=== PATIENT | female | born 1955 | race African-American/Black ===

== ENCOUNTER 2025-02-25 16:41 | Inpatient (IN) | payer MEDICARE, OTHER ==
[~2025-02-25] VITALS: Ht 154.9 cm; Wt 155.7 kg
[~2025-02-25 16:41] MED LIST: ASPI-1444 PO; METF-1211 PO; OXYC1TAB10 PO
[2025-02-25] MEDS ORDERED: GLIP-383 PO (17:03)
[2025-02-25] MEDS ORDERED: CINA30TA5 PO (17:03)
[2025-02-25] MEDS ORDERED: ATOR20TA65 PO (17:03)
[2025-02-25] MEDS ORDERED: ALBU18HF12 IH (17:03)
[2025-02-25] MEDS ORDERED: SODI5POW3 PO (17:03)
[2025-02-25] MEDS ORDERED: FLUT1BLS3 PO (17:03)
[2025-02-25] MEDS ORDERED: METO100T14 PO (17:03)
[2025-02-25] MEDS ORDERED: SEMA0.258 SQ (17:03)
[2025-02-25] MEDS ORDERED: DAPA5TAB PO (17:03)
[2025-02-25] MEDS ORDERED: FERR-89 PO (17:03)
[2025-02-25] MEDS ORDERED: SOLI5TAB6 PO (17:03)
[2025-02-25 17:46] LABS: EOSINOPHILS % (AUTO) 1.2 % (1.0-6.0); HEMATOCRIT 38.7 % (36-46); HEMOGLOBIN 12.3 g/dL (12.0-16.0); LYMPHOCYTES # (AUTO) 1.5 K/uL (1.0-4.8); LYMPHOCYTES % (AUTO) 15.1 % (22.0-44.0); MEAN CORPUSCULAR HEMOGLOBIN 27.6 pg (26.0-34.0); MEAN CORPUSCULAR HGB CONC 31.9 G/dL (31.0-37.0); MEAN CORPUSCULAR VOLUME 87 fL (80-100); MONOCYTES # (AUTO) 0.7 K/uL (0.1-1.0); MONOCYTES % (AUTO) 6.9 % (2.0-9.0); NEUTROPHILS # (AUTO) 7.4 K/uL (1.8-7.7); NEUTROPHILS % (AUTO) 75.8 % (40.0-70.0); PLATELET COUNT (AUTO) 224 K/uL (150-450); RED BLOOD CELL COUNT(AUTO) 4.47 MIL/uL (4.00-5.20); RED CELL DISTRIBUTION WIDTH 15.9 % (11.5-14.5); WHITE BLOOD COUNT (AUTO) 9.7 K/uL (4.5-11.0)
[2025-02-25 17:59] LABS: ANION GAP 11 mmol/L (8-16); CALCIUM, TOTAL 8.8 mg/dL (8.8-10.5); CARBON DIOXIDE 22 mmol/L (22-29); CHLORIDE 109 mmol/L (98-107); CREATININE 2.92 mg/dL (0.60-1.30); GLOMERULAR FILTR. RATE CALC 19 mL/min (>60); GLUCOSE,RANDOM 102 mg/dL (70-110); POTASSIUM 5.3 mmol/L (3.5-5.1); SODIUM SERUM 142 mmol/L (136-145); UREA NITROGEN, BLOOD 53 mg/dL (7-18)
[2025-02-25 18:01] LABS: CREATINE KINASE, TOTAL ONLY 126 U/L (26-192)
[2025-02-25 18:04] LABS: TROPONIN I-HIGH SENSITIVITY 45 ng/L (<51)
[2025-02-25 18:06] LABS: B-TYPE NATRIURETIC PEPTIDE 559 pg/mL (0-100)
[2025-02-25] MEDS: FUROSEMIDE 40 MG/4 ML VIAL IVP ONE (20:02)
[2025-02-25] MEDS: NITROGLYCERIN 2% (1 GM=INCH) OINTMENT PACKET TP ONE (20:02)
[2025-02-25] MEDS ORDERED: FERR325T27 PO (21:43)
[2025-02-25] MEDS ORDERED: GLIP-300 PO (21:43)
[2025-02-25] MEDS ORDERED: AMLO-257 PO (21:43)
[2025-02-25] MEDS ORDERED: CINA30TA32 PO (21:43)
[2025-02-25 22:01] LABS: APPEARANCE,URINE CLEAR (CLEAR); BILIRUBIN,URINE NEGATIVE (NEGATIVE); COLOR,URINE COLORLESS (YELLOW); GLUCOSE, URINE (UA) TRACE mg/dL (NEGATIVE); KETONES,URINE NEGATIVE (NEGATIVE); LEUKOCYTE ESTERASE ,URINE TRACE (NEGATIVE); NITRATE,URINE NEGATIVE (NEGATIVE); OCCULT BLOOD,URINE NEGATIVE (NEGATIVE); PROTEIN,URINE 100-200,SEE CONFIRM mg/dL (NEGATIVE); SPECIFIC GRAVITIY, URINE 1.009 (1.003-1.030); UROBILINOGEN,URINE <=1.0 mg/dL (<=1.0)
[2025-02-25 22:02] LABS: BACTERIA,URINE None Seen /HPF (None Seen); RBC,URINE None Seen /HPF (0-2); SQUAMOUS EPITHELIAL CELL,UR Few /LPF (None Seen); SULFOSALICYLIC ACID,URINE 2+ (Negative); WBC,URINE 0-2 /HPF (0-5)
[2025-02-25] MEDS ORDERED: ALBUTEROL SULFATE 2.5 MG/0.5 ML NEB SOLUTION NEB PRN (22:45)
[2025-02-25] MEDS ORDERED: MAGNESIUM HYDROXIDE SUSPENSION 30 ML UDCUP PO PRN (22:45)
[2025-02-25] MEDS ORDERED: ONDANSETRON HCL 4 MG/2 ML VIAL IVP PRN (22:45)
[2025-02-25] MEDS ORDERED: IPRATROPIUM BROMIDE 0.5 MG/2.5 ML NEB SOLUTION NEB PRN (22:45)
[2025-02-25] MEDS ORDERED: ZOLPIDEM TARTRATE 5 MG TABLET PO PRN (22:45)
[2025-02-25] MEDS ORDERED: MORPHINE SULFATE 2 MG/ML SYRINGE IVP PRN (22:45)
[2025-02-25] MEDS ORDERED: HYDROCODONE/ACETAMINOPHEN 5-325 MG TABLET PO PRN (22:45)
[2025-02-25] MEDS ORDERED: BISACODYL 10 MG RECTAL RECTAL SUPPOSITORY PR PRN (22:45)
[2025-02-25] MEDS ORDERED: ACETAMINOPHEN 325 MG TABLET PO PRN (22:45)
[2025-02-26] VITALS (13 sets, daily range): BP systolic 90–116; BP diastolic 51–88; PULSE 82–113; RESP 18–22; TEMP 97.2–98.4; O2SAT 91–100
[2025-02-26] MEDS: HEPARIN SODIUM,PORCINE 5,000 UNITS/ML VIAL SQ SCH (01:58)
[2025-02-26 06:50] LABS: GLUCOMETER DEV NAME(LOC) 5N.1D; GLUCOSE,POINT OF CARE 104 MG/DL (70-110)
[2025-02-26] MEDS: GlipiZIDE ER 2.5 MG ER TABLET PO SCH (06:58)
[2025-02-26] MEDS ORDERED: [UNRECOGNIZED DRUG - OTHER] PO SCH (08:00)
[2025-02-26] MEDS: ATORVASTATIN CALCIUM 20 MG TABLET PO SCH (08:21)
[2025-02-26] MEDS: AmLODIPine BESYLATE 5 MG TABLET PO SCH (08:22)
[2025-02-26] MEDS: FERROUS SULFATE 325 MG EC TABLET PO SCH (08:22)
[2025-02-26] MEDS: SOLIFENACIN SUCCINATE 5 MG TABLET PO SCH (08:22)
[2025-02-26] MEDS: METOPROLOL TARTRATE 50 MG TABLET PO SCH (08:22)
[2025-02-26] MEDS: PANTOPRAZOLE SODIUM 40 MG DR TABLET PO SCH (08:22)
[2025-02-26] MEDS: DAPAGLIFLOZIN PROPANEDIOL 5 MG TABLET PO SCH (08:22)
[2025-02-26 14:07] LABS: EOSINOPHILS % (AUTO) 0.8 % (1.0-6.0); HEMATOCRIT 38.3 % (36-46); HEMOGLOBIN 12.3 g/dL (12.0-16.0); LYMPHOCYTES # (AUTO) 1.3 K/uL (1.0-4.8); LYMPHOCYTES % (AUTO) 13.2 % (22.0-44.0); MEAN CORPUSCULAR HEMOGLOBIN 28.1 pg (26.0-34.0); MEAN CORPUSCULAR HGB CONC 32.2 G/dL (31.0-37.0); MEAN CORPUSCULAR VOLUME 87 fL (80-100); MONOCYTES # (AUTO) 0.7 K/uL (0.1-1.0); MONOCYTES % (AUTO) 7.5 % (2.0-9.0); NEUTROPHILS # (AUTO) 7.7 K/uL (1.8-7.7); NEUTROPHILS % (AUTO) 77.5 % (40.0-70.0); PLATELET COUNT (AUTO) 238 K/uL (150-450); RED BLOOD CELL COUNT(AUTO) 4.38 MIL/uL (4.00-5.20); RED CELL DISTRIBUTION WIDTH 16.2 % (11.5-14.5)
[2025-02-26 14:28] LABS: ALBUMIN 3.1 g/dL (3.4-5.0); BILIRUBIN,TOTAL 0.4 mg/dL (0.1-1.0); CALCIUM, TOTAL 9.2 mg/dL (8.8-10.5); CREATININE 3.25 mg/dL (0.60-1.30); POTASSIUM 5.6 mmol/L (3.5-5.1); TOTAL PROTEIN, SERUM 7.7 g/dL (6.4-8.2)
[2025-02-26] MEDS: ALBUTEROL SULFATE 2.5 MG/0.5 ML NEB SOLUTION NEB SCH (15:02)
[2025-02-26] MEDS: IPRATROPIUM BROMIDE 0.5 MG/2.5 ML NEB SOLUTION NEB SCH (15:03)
[2025-02-26] MEDS: CINACALCET HCL 30 MG TABLET PO SCH (18:17)
[2025-02-26 19:06] LABS: TROPONIN I-HIGH SENSITIVITY 50 ng/L (<51)
[2025-02-26] MEDS: METOPROLOL SUCCINATE 50 MG ER TABLET PO SCH (20:53)
[2025-02-26] MEDS: FUROSEMIDE 40 MG/4 ML VIAL IVP SCH (20:53)
[2025-02-26 21:20] LABS: GLUCOMETER DEV NAME(LOC) 5N.1D; GLUCOSE,POINT OF CARE 191 MG/DL (70-110)
[2025-02-26 22:31] LABS: GLUCOMETER DEV NAME(LOC) 5S.2D; GLUCOSE,POINT OF CARE 86 MG/DL (70-110)
[2025-02-27] VITALS (13 sets, daily range): BP systolic 107–129; BP diastolic 83–91; PULSE 68–110; RESP 18–24; TEMP 97.5–98.6; O2SAT 91–100
[2025-02-27 05:26] LABS: GLUCOMETER DEV NAME(LOC) 5N.1D; GLUCOSE,POINT OF CARE 83 MG/DL (70-110)
[2025-02-27 07:14] LABS: BASOPHILS % (AUTO) 0.3 % (0.0-2.0); EOSINOPHILS % (AUTO) 0.9 % (1.0-6.0); HEMOGLOBIN 12.4 g/dL (12.0-16.0); LYMPHOCYTES # (AUTO) 1.4 K/uL (1.0-4.8); MEAN CORPUSCULAR HEMOGLOBIN 27.9 pg (26.0-34.0); MEAN CORPUSCULAR HGB CONC 31.8 G/dL (31.0-37.0); MEAN CORPUSCULAR VOLUME 88 fL (80-100); MONOCYTES # (AUTO) 0.7 K/uL (0.1-1.0); MONOCYTES % (AUTO) 7.5 % (2.0-9.0); NEUTROPHILS # (AUTO) 6.9 K/uL (1.8-7.7); NEUTROPHILS % (AUTO) 76.3 % (40.0-70.0); PLATELET COUNT (AUTO) 214 K/uL (150-450); RED BLOOD CELL COUNT(AUTO) 4.45 MIL/uL (4.00-5.20); RED CELL DISTRIBUTION WIDTH 15.9 % (11.5-14.5)
[2025-02-27 07:41] LABS: CREATININE 3.4 mg/dL (0.60-1.30)
[2025-02-27 10:28] LABS: INFLUENZA A-RTPCR,COMBO NEGATIVE (NEGATIVE); INFLUENZA B-RTPCR,COMBO NEGATIVE (NEGATIVE); RESPIRATORY SYNCYTIAL VRS-PCR NEGATIVE (NEGATIVE); SARS COVID19 RTPCR, COMBO NEGATIVE (NEGATIVE)
[2025-02-27 12:06] LABS: GLUCOMETER DEV NAME(LOC) 5N.2C; GLUCOSE,POINT OF CARE 79 MG/DL (70-110)
[2025-02-27 12:30] LABS: TROPONIN I-HIGH SENSITIVITY 60 ng/L (<51)
[2025-02-27 20:25] LABS: GLUCOMETER DEV NAME(LOC) 5S.2D; GLUCOSE,POINT OF CARE 219 MG/DL (70-110)
[2025-02-28] VITALS (9 sets, daily range): BP systolic 93–147; BP diastolic 70–84; PULSE 72–106; RESP 18–20; TEMP 97.3–98.1; O2SAT 91–100
[2025-02-28 00:06] LABS: GLUCOMETER DEV NAME(LOC) 5N.2C; GLUCOSE,POINT OF CARE 200 MG/DL (70-110)
[2025-02-28 07:04] LABS: CALCIUM, TOTAL 9.2 mg/dL (8.8-10.5); CREATININE 3.64 mg/dL (0.60-1.30); POTASSIUM 4.9 mmol/L (3.5-5.1)
[2025-02-28] MEDS: METOPROLOL SUCCINATE 50 MG ER TABLET PO SCH (08:34)
[2025-02-28 10:46] LABS: GLUCOMETER DEV NAME(LOC) 5N.2C; GLUCOSE,POINT OF CARE 105 MG/DL (70-110)
[2025-02-28 10:46] LABS: GLUCOMETER DEV NAME(LOC) 5N.2C; GLUCOSE,POINT OF CARE 87 MG/DL (70-110)
[2025-02-28 10:46] LABS: GLUCOMETER DEV NAME(LOC) 5N.2C; GLUCOSE,POINT OF CARE 71 MG/DL (70-110)
[2025-02-28 15:23] LABS: APPEARANCE,URINE CLEAR (CLEAR); BILIRUBIN,URINE NEGATIVE (NEGATIVE); COLOR,URINE LIGHT YELLOW (YELLOW); GLUCOSE, URINE (UA) 300-500 mg/dL (NEGATIVE); KETONES,URINE NEGATIVE (NEGATIVE); LEUKOCYTE ESTERASE ,URINE TRACE (NEGATIVE); NITRATE,URINE NEGATIVE (NEGATIVE); OCCULT BLOOD,URINE NEGATIVE (NEGATIVE); PROTEIN,URINE 100-200,SEE CONFIRM mg/dL (NEGATIVE); SPECIFIC GRAVITIY, URINE 1.013 (1.003-1.030); UROBILINOGEN,URINE <=1.0 mg/dL (<=1.0)
[2025-02-28 15:27] LABS: PROTEIN,URINE RANDOM 178 mg/dL (0-11.9); SODIUM,URINE RANDOM 55 mmol/l (20-110); UREA NITROGEN,URINE RANDOM 583 mg/dL (350-1000)
[2025-02-28 15:51] LABS: BACTERIA,URINE None Seen /HPF (None Seen); CALCIUM PHOSPHATE CRYSTALS,UR None Seen /LPF (None Seen); RBC,URINE None Seen /HPF (0-2); RENAL EPITHELIAL CELLS,URINE None Seen /LPF (None Seen); SQUAMOUS EPITHELIAL CELL,UR Rare /LPF (None Seen); TRANSITIONAL EPI CELLS,URINE None Seen /LPF (None Seen); WBC,URINE 0-2 /HPF (0-5); YEAST,URINE None Seen /HPF (None Seen)
[2025-02-28 15:52] LABS: CALCIUM OXALATE CRYSTALS,UR None Seen /LPF (None Seen); SULFOSALICYLIC ACID,URINE 2+ (Negative); TRIPLE PHOSPHATE CRYSTAL,UR None Seen /LPF (None Seen)
[2025-02-28 18:40] LABS: GLUCOMETER DEV NAME(LOC) 5S.2D; GLUCOSE,POINT OF CARE 55 MG/DL (70-110)
[2025-02-28 18:40] LABS: GLUCOMETER DEV NAME(LOC) 5S.2D; GLUCOSE,POINT OF CARE 80 MG/DL (70-110)
[2025-02-28 18:40] LABS: GLUCOMETER DEV NAME(LOC) 5S.2D; GLUCOSE,POINT OF CARE 122 MG/DL (70-110)
== END 2025-02-28 18:30 | disposition short-term general hospital (02) | DRG 291 ==
LOC: EMS 16:43 → EDH 22:31 → 5S 02-26 02:14
PROVIDERS: ADMIT Hospitalist; ATTEND Hospitalist
DX: I13.0 Hypertensive heart and chronic kidney disease with heart failure and stage 1 through stage 4 chronic kidney disease, or unspecified chronic kidney disease (principal); I50.23 Acute on chronic systolic (congestive) heart failure; J96.01 Acute respiratory failure with hypoxia; N18.4 Chronic kidney disease, stage 4 (severe); N25.81 Secondary hyperparathyroidism of renal origin; N17.9 Acute kidney failure, unspecified; J98.11 Atelectasis; Z68.44 Body mass index [BMI] 60.0-69.9, adult; Z20.822 Contact with and (suspected) exposure to COVID-19; E66.813 Obesity, class 3; E11.22 Type 2 diabetes mellitus with diabetic chronic kidney disease; J44.89 Other specified chronic obstructive pulmonary disease; E87.5 Hyperkalemia; E78.5 Hyperlipidemia, unspecified; F17.200 Nicotine dependence, unspecified, uncomplicated; E88.810 Metabolic syndrome; I71.21 Aneurysm of the ascending aorta, without rupture; Z79.899 Other long term (current) drug therapy; Z91.81 History of falling; Z91.199 Patient's noncompliance with other medical treatment and regimen due to unspecified reason; Z79.85 Long-term (current) use of injectable non-insulin antidiabetic drugs
CPT/HCPCS: 0241U; 71045; 71250; 76770; 80048; 80053; 81001; 81002; 82550; 82570; 82962; 83036; 83880; 84156; 84300; 84484; 84540; 85025; 93005; 93306; 94640; 96374; 97163; 97167; 97530; 97535; 99291; G0378; J1644; J1940; 36415-L1; 36415-TC; J7613

== ENCOUNTER 2025-09-17 05:44 | Inpatient (IN) | payer MEDICARE, OTHER ==
[~2025-09-17] VITALS: Ht 154.9 cm; Wt 152.0 kg
[~2025-09-17 05:44] MED LIST changes: +ALBU18HF12 IH; +AMLO-257 PO; -ASPI-1444 PO; +ATOR20TA65 PO; +CINA30TA32 PO; +CINA30TA5 PO; +DAPA5TAB PO; +FERR-89 PO; +FERR325T27 PO; +FLUT1BLS3 PO; +GLIP-300 PO; +GLIP-383 PO; -METF-1211 PO; +METO100T14 PO; -OXYC1TAB10 PO; +SOLI5TAB6 PO
[2025-09-17 05:50] VITALS: PULSE 84; RESP 19; O2SAT 90
[2025-09-17] MEDS: NITROGLYCERIN 2% (1 GM=INCH) OINTMENT PACKET TP ONE (06:23)
[2025-09-17] MEDS: FUROSEMIDE 40 MG/4 ML VIAL IVP ONE (06:23)
[2025-09-17 06:24] LABS: PLATELET COUNT (AUTO) 195 K/uL (150-450); RED BLOOD CELL COUNT(AUTO) 4.15 MIL/uL (4.00-5.20); RED CELL DISTRIBUTION WIDTH 16.2 % (11.5-14.5); WHITE BLOOD COUNT (AUTO) 8.8 K/uL (4.5-11.0)
[2025-09-17 06:34] LABS: CALCIUM, TOTAL 9.2 mg/dL (8.8-10.5); CREATININE 3.18 mg/dL (0.60-1.30); GLOMERULAR FILTR. RATE CALC 17 mL/min (>60); GLUCOSE,RANDOM 82 mg/dL (70-110); SODIUM SERUM 143 mmol/L (136-145); UREA NITROGEN, BLOOD 48 mg/dL (7-18)
[2025-09-17 06:45] VITALS: PULSE 107; RESP 24; O2SAT 95
[2025-09-17 06:48] LABS: TROPONIN I-HIGH SENSITIVITY 59 ng/L (<51)
[2025-09-17] MEDS: SODIUM ZIRCONIUM CYCLOSILICATE 10 GM POWDER PACKET PO ONE (07:12)
[2025-09-17] MEDS ORDERED: DEXTROSE 50%-WATER 25 GM/50 ML SYRINGE IVP PRN (08:30)
[2025-09-17] MEDS ORDERED: ONDANSETRON HCL 4 MG/2 ML VIAL IVP PRN (08:30)
[2025-09-17] MEDS ORDERED: ACETAMINOPHEN 325 MG TABLET PO PRN (08:30)
[2025-09-17 08:40] LABS: APPEARANCE,URINE CLEAR (CLEAR); GLUCOSE, URINE (UA) NEGATIVE (NEGATIVE); LEUKOCYTE ESTERASE ,URINE NEGATIVE (NEGATIVE); NITRATE,URINE NEGATIVE (NEGATIVE); OCCULT BLOOD,URINE NEGATIVE (NEGATIVE); SPECIFIC GRAVITIY, URINE 1.010 (1.003-1.030)
[2025-09-17 08:56] LABS: SULFOSALICYLIC ACID,URINE 1+ (Negative)
[2025-09-17 08:57] LABS: SQUAMOUS EPITHELIAL CELL,UR Few /LPF (None Seen)
[2025-09-17] MEDS: ASPIRIN 81 MG CHEWABLE TABLET PO SCH (09:07)
[2025-09-17] MEDS: DOCUSATE SODIUM 100 MG CAPSULE PO SCH (09:07)
[2025-09-17] MEDS: ATORVASTATIN CALCIUM 20 MG TABLET PO SCH (09:07)
[2025-09-17] MEDS: FAMOTIDINE 20 MG TABLET PO SCH (09:07)
[2025-09-17 09:32] LABS: TROPONIN I-HIGH SENSITIVITY 61 ng/L (<51)
[2025-09-17] MEDS: METOPROLOL SUCCINATE 50 MG ER TABLET PO SCH (11:47)
[2025-09-17 11:51] VITALS: BP 139/102; PULSE 110; RESP 18; TEMP 98.6; O2SAT 92
[2025-09-17 12:00] LABS: GLUCOMETER DEV NAME(LOC) 5N.2C; GLUCOSE,POINT OF CARE 74 MG/DL (70-110)
[2025-09-17] MEDS: INSULIN LISPRO 100 UNITS/ML SQ PRN (15:23)
[2025-09-17 15:26] LABS: GLUCOMETER DEV NAME(LOC) 5N.2C; GLUCOSE,POINT OF CARE 207 MG/DL (70-110)
[2025-09-17] MEDS: HEPARIN SODIUM,PORCINE 5,000 UNITS/ML VIAL SQ SCH (17:05)
[2025-09-17 17:56] LABS: GLUCOMETER DEV NAME(LOC) 5N.2C; GLUCOSE,POINT OF CARE 87 MG/DL (70-110)
[2025-09-17 18:36] LABS: CREATININE,URINE RANDOM 71.4 mg/dL (30.0-125.0); PROTEIN,URINE RANDOM 238.0 mg/dL (0-11.9)
[2025-09-17 20:16] VITALS: BP 132/70; PULSE 106; RESP 20; TEMP 98.4; O2SAT 97
[2025-09-17] MEDS: FUROSEMIDE 40 MG/4 ML VIAL IVP SCH (20:55)
[2025-09-18] VITALS (10 sets, daily range): BP systolic 106–166; BP diastolic 77–105; PULSE 98–110; RESP 20–24; TEMP 97.7–98.4; O2SAT 92–96
[2025-09-18 05:55] LABS: GLUCOMETER DEV NAME(LOC) 5N.2C; GLUCOSE,POINT OF CARE 84 MG/DL (70-110)
[2025-09-18 06:56] LABS: CALCIUM, TOTAL 9.2 mg/dL (8.8-10.5); CREATININE 3.41 mg/dL (0.60-1.30); GLOMERULAR FILTR. RATE CALC 16.0 mL/min (>60); GLUCOSE,RANDOM 70.0 mg/dL (70-110); SODIUM SERUM 145.0 mmol/L (136-145); UREA NITROGEN, BLOOD 54.0 mg/dL (7-18)
[2025-09-18 06:58] LABS: PHOSPHORUS 5.2 mg/dL (2.5-4.9)
[2025-09-18 07:17] LABS: TROPONIN I-HIGH SENSITIVITY 63 ng/L (<51)
[2025-09-18] MEDS: ALBUTEROL SULFATE 2.5 MG/0.5 ML NEB SOLUTION NEB PRN (08:24)
[2025-09-18] MEDS ORDERED: FUROSEMIDE 40 MG/4 ML VIAL IVP SCH (09:00)
[2025-09-18 13:26] LABS: GLUCOMETER DEV NAME(LOC) 5S.2E; GLUCOSE,POINT OF CARE 172 MG/DL (70-110)
[2025-09-19 05:42] VITALS: BP 155/101; PULSE 65; RESP 20; TEMP 98.6; O2SAT 96
[2025-09-19 06:44] LABS: CALCIUM, TOTAL 9.2 mg/dL (8.8-10.5); CREATININE 3.58 mg/dL (0.60-1.30); GLOMERULAR FILTR. RATE CALC 15.0 mL/min (>60); GLUCOSE,RANDOM 106.0 mg/dL (70-110); PHOSPHORUS 5.3 mg/dL (2.5-4.9); SODIUM SERUM 143.0 mmol/L (136-145); UREA NITROGEN, BLOOD 57.0 mg/dL (7-18)
[2025-09-19 08:51] VITALS: BP 115/80; PULSE 102; RESP 20; TEMP 98; O2SAT 99
[2025-09-19] MEDS: SODIUM ZIRCONIUM CYCLOSILICATE 10 GM POWDER PACKET PO ONE (11:07)
[2025-09-19 12:05] VITALS: BP 101/75; PULSE 111; RESP 24; TEMP 98.4; O2SAT 99
[2025-09-19 16:00] VITALS: BP 104/80; PULSE 98; RESP 22; TEMP 98; O2SAT 97
[2025-09-19 17:26] LABS: GLUCOMETER DEV NAME(LOC) 5S.2E; GLUCOSE,POINT OF CARE 111 MG/DL (70-110)
[2025-09-19 17:31] LABS: GLUCOMETER DEV NAME(LOC) 5S.2E; GLUCOSE,POINT OF CARE 156 MG/DL (70-110)
[2025-09-19 17:31] LABS: GLUCOMETER DEV NAME(LOC) 5S.2E; GLUCOSE,POINT OF CARE 106 MG/DL (70-110)
[2025-09-19 20:42] VITALS: BP 101/66; PULSE 86; RESP 20; TEMP 98.6; O2SAT 96
[2025-09-19 23:10] VITALS: BP 154/91; PULSE 98; RESP 20; TEMP 98.6; O2SAT 96
[2025-09-20] VITALS (7 sets, daily range): BP systolic 109–152; BP diastolic 82–100; PULSE 70–103; RESP 18–22; TEMP 97.3–98.6; O2SAT 95–100
[2025-09-20 05:26] LABS: GLUCOMETER DEV NAME(LOC) 5N.2C; GLUCOSE,POINT OF CARE 119 MG/DL (70-110)
[2025-09-20 06:00] LABS: PLATELET COUNT (AUTO) 204 K/uL (150-450); RED BLOOD CELL COUNT(AUTO) 4.06 MIL/uL (4.00-5.20); RED CELL DISTRIBUTION WIDTH 15.9 % (11.5-14.5); WHITE BLOOD COUNT (AUTO) 7.7 K/uL (4.5-11.0)
[2025-09-20 06:09] LABS: CALCIUM, TOTAL 9.2 mg/dL (8.8-10.5); CREATININE 3.68 mg/dL (0.60-1.30); GLOMERULAR FILTR. RATE CALC 15.0 mL/min (>60); GLUCOSE,RANDOM 98.0 mg/dL (70-110); SODIUM SERUM 143.0 mmol/L (136-145); UREA NITROGEN, BLOOD 59.0 mg/dL (7-18)
[2025-09-20] MEDS: FUROSEMIDE 40 MG/4 ML VIAL IVP SCH (08:49)
[2025-09-20 14:41] LABS: GLUCOMETER DEV NAME(LOC) 5N.1D; GLUCOSE,POINT OF CARE 90 MG/DL (70-110)
[2025-09-20 18:41] LABS: GLUCOMETER DEV NAME(LOC) 5N.1D; GLUCOSE,POINT OF CARE 123 MG/DL (70-110)
[2025-09-20] MEDS ORDERED: 0.9% SODIUM CHLORIDE 5 ML NEB SOLUTION NEB ONE (19:52)
[2025-09-20 22:56] LABS: GLUCOMETER DEV NAME(LOC) 5N.1D; GLUCOSE,POINT OF CARE 97 MG/DL (70-110)
[2025-09-21] MEDS ORDERED: 0.9% SODIUM CHLORIDE 5 ML NEB SOLUTION NEB ONE (02:13)
[2025-09-21 02:14] VITALS: PULSE 65; RESP 20; O2SAT 95
[2025-09-21 02:29] VITALS: PULSE 72; RESP 20; O2SAT 97
[2025-09-21 03:03] VITALS: BP 158/91; PULSE 90; RESP 20; TEMP 98.1; O2SAT 94
[2025-09-21 06:20] LABS: GLUCOMETER DEV NAME(LOC) 5S.1E; GLUCOSE,POINT OF CARE 93 MG/DL (70-110)
[2025-09-21 07:30] LABS: PLATELET COUNT (AUTO) 199 K/uL (150-450); RED BLOOD CELL COUNT(AUTO) 4.24 MIL/uL (4.00-5.20); RED CELL DISTRIBUTION WIDTH 16.1 % (11.5-14.5); WHITE BLOOD COUNT (AUTO) 6.9 K/uL (4.5-11.0)
[2025-09-21 07:39] LABS: CALCIUM, TOTAL 9.1 mg/dL (8.8-10.5); CREATININE 3.54 mg/dL (0.60-1.30); GLOMERULAR FILTR. RATE CALC 15.0 mL/min (>60); GLUCOSE,RANDOM 113.0 mg/dL (70-110); SODIUM SERUM 144.0 mmol/L (136-145); UREA NITROGEN, BLOOD 62.0 mg/dL (7-18)
[2025-09-21 08:15] VITALS: BP 112/75; PULSE 80; RESP 16; TEMP 98.6; O2SAT 95
[2025-09-21] MEDS ORDERED: FURO40TA6 PO (09:39)
[2025-09-21] MEDS: FUROSEMIDE 40 MG TABLET PO SCH (09:46)
== END 2025-09-21 13:00 | disposition home or self-care (01) | DRG 291 ==
LOC: EMS 05:45 → EDH 08:27 → 5N 10:40
PROVIDERS: ADMIT Internal Medicine; ATTEND Internal Medicine
PROC: 5A09357 Assistance with Respiratory Ventilation, Less than 24 Consecutive Hours, Continuous Positive Airway Pressure (ICD-10-PCS; principal; 2025-09-17)
DX: I13.0 Hypertensive heart and chronic kidney disease with heart failure and stage 1 through stage 4 chronic kidney disease, or unspecified chronic kidney disease (principal); I50.43 Acute on chronic combined systolic (congestive) and diastolic (congestive) heart failure; J96.01 Acute respiratory failure with hypoxia; Z68.44 Body mass index [BMI] 60.0-69.9, adult; N18.4 Chronic kidney disease, stage 4 (severe); N17.9 Acute kidney failure, unspecified; D63.1 Anemia in chronic kidney disease; E11.22 Type 2 diabetes mellitus with diabetic chronic kidney disease; J44.9 Chronic obstructive pulmonary disease, unspecified; E66.01 Morbid (severe) obesity due to excess calories; I42.9 Cardiomyopathy, unspecified; E21.3 Hyperparathyroidism, unspecified; G47.33 Obstructive sleep apnea (adult) (pediatric); E78.5 Hyperlipidemia, unspecified; E87.5 Hyperkalemia; Z79.84 Long term (current) use of oral hypoglycemic drugs; Z79.899 Other long term (current) drug therapy; Z91.148 Patient's other noncompliance with medication regimen for other reason; Z87.891 Personal history of nicotine dependence; Z91.199 Patient's noncompliance with other medical treatment and regimen due to unspecified reason; Z83.3 Family history of diabetes mellitus; Z82.49 Family history of ischemic heart disease and other diseases of the circulatory system
CPT/HCPCS: 71045; 71250; 80048; 81001; 81002; 82570; 82962; 83735; 83880; 84100; 84156; 84484; 85025; 93005; 93306; 93970; 94640; 94660; 97162; 97167; 97530; 99291; J1644; J1938; 36415-L1; 36415-TC; J7613